=== PATIENT | female | born 1965 | race African-American/Black ===

== ENCOUNTER 2017-04-21 17:37 | Emergency (ER) | payer OTHER ==
[~2017-04-21] VITALS: Ht 152.4 cm; Wt 79.8 kg
[2017-04-21 18:03] VITALS: BP 153/91; TEMP 98.8
== END 2017-04-21 18:03 | disposition home or self-care (01) ==
LOC: ED 17:37
DX: Z09 Encounter for follow-up examination after completed treatment for conditions other than malignant neoplasm (principal)

== ENCOUNTER 2017-04-24 15:57 | Emergency (ER) | payer OTHER ==
[~2017-04-24] VITALS: Ht 160 cm; Wt 79.8 kg
[2017-04-24 16:40] VITALS: TEMP 98
[2017-04-24 16:56] VITALS: BP 128/86
== END 2017-04-24 17:03 | disposition home or self-care (01) ==
LOC: ED 15:57
DX: Z48.02 Encounter for removal of sutures (principal)

== ENCOUNTER 2017-05-16 14:50 | Emergency (ER) | payer OTHER ==
[~2017-05-16] VITALS: Ht 160 cm; Wt 79.4 kg
[2017-05-16 15:21] VITALS: BP 170/90; TEMP 98.3
== END 2017-05-16 16:43 | disposition home or self-care (01) ==
LOC: ED 14:50
DX: S60.012A Contusion of left thumb without damage to nail, initial encounter (principal); X58.XXXA Exposure to other specified factors, initial encounter; Y92.098 Other place in other non-institutional residence as the place of occurrence of the external cause
CPT/HCPCS: 99283